=== PATIENT | male | born 1940 | race Caucasian/White ===

== ENCOUNTER 2017-09-18 14:34 | Inpatient (IN) | payer MEDICARE, OTHER ==
[~2017-09-18] VITALS: Ht 175.3 cm; Wt 82.6 kg
--- NOTE | ~2017-09-18 | EC ---
PATIENT:AJIT ELKINS DATE OF SERVICE: 09/18/17 SEX: M MEDICAL RECORD: [id number] DATE OF : 44 LOCATION:D. D.210 AGE OF PATIENT: 76 ADMISSION DATE: 09/18/17 REFERRING PHYSICIAN: INTERPRETING PHYSICIAN: LEXI PARSONS MD ECHOCARDIOGRAM REPORT ECHO CHARGES Date: CLINICAL DIAGNOSIS: ECHOCARDIOGRAPHIC MEASUREMENTS (adult normal given) AC root (d.<3.7cm) cm LV Septum d (<1.2 cm> cm Valve Excursion cm LV Septum (systole) cm Left Atria (s.<4.0cm> cm LVPW d(<1.2cm) cm RV (d.<2.3cm) cm LVPW (sytole) cm LV diastole(<5.6CM) cm MV E-F(>70mm/sec) cm LV systole cm LVOT Diameter cm MV exc.(>10mm) cm Est.ejection fraction (50-75%) % DOPPLER: LVIT cm/sec A cm/sec E cm/sec LA cm/sec RVSP mmHg LVOT cm/sec AOP1/2T m/s Asc. 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 FINDINGS: 1. Left ventricular chamber size is within normal limits. Left ventricular systolic function is normal. Overall ejection fraction estimated at 60%. 2. Left atrium is enlarged at 4.5 cm. Right atrium and right ventricle chamber sizes are within normal limits. 3. Valvular structures have normal structure and motion. ECHOCARDIOGRAM REPORT [id number] AJIT ELKINS 4. Doppler interrogation reveals mild aortic insufficiency, trace mitral regurgitation, no other valvular insufficiency or stenosis. Pulmonary systolic pressure is estimated at 21 mmHg. 5. No evidence of pericardial effusion or left ventricular thrombus. TRANSINT:[id number] Voice Confirmation ID: [id number] DOCUMENT ID: [id number] LEXI PARSONS MD at 1730 CC: [id number] DICTATION DATE: 09/19/17 1318 TELEPHONE COLLECTOR: 09/19/17 1335 ADM IN [facility] [address] [place] [address]
--- NOTE | ~2017-09-18 | OP ---
PATIENT NAME: AJIT ELKINS MEDICAL RECORD: [id number] :44 LOCATION:D.M2 D.2106 ADMISSION DATE:09/18/17 SURGEON: BROOKE VELASQUEZ MD DATE OF OPERATION: 09/19/2017 PROCEDURE: Left frontal lyla holes with subacute subdural hematoma. SURGEON: Brooke Velasquez MD PREOPERATIVE DIAGNOSIS: Left frontal subdural hematoma. POSTOPERATIVE DIAGNOSIS: Left frontal subdural hematoma. DESCRIPTION AND TECHNIQUE: After induction of general endotracheal anesthesia, the patient was placed supine on the operating table. Left frontal area was prepped and draped in the usual sterile manner. A longitudinal scalp incision was carried out on the left superior temporal line. A craniotome was used to create a lyla hole at this location. The dura was opened in cruciate manner with bipolar cautery and #11 blade. There was brisk egress of subacute subdural hematoma fluid from subdural space. This was irrigated with lukewarm saline irrigant solution until it was crystal clear. Next, the galea was reapproximated with interrupted 2-0 Vicryl suture. The skin was closed with hermes. A sterile dressing was applied to the wound. The patient was awakened in good condition and taken to recovery. All counts were reported as correct. Estimated blood loss was minimal. TRANSINT:[id number] Voice Confirmation ID: [id number] DOCUMENT ID: [id number] BROOKE VELASQUEZ MD at 1510 CC: [id number] DICTATION DATE: 09/30/17 1350 DIRECTOR REGULATORY AFFAIRS: 09/30/17 1410 DIS IN 09/24/17 [place] [id number] [place] [id number]
--- NOTE | ~2017-09-18 | HP ---
PATIENT: AJIT ELKINS MEDICAL RECORD: [id number] ACCOUNT: [id number] LOCATION:[address] : [birth year] ADMISSION DATE: 09/18/17 HISTORY AND PHYSICAL EXAMINATION DATE OF ADMISSION: 09/18/2017 CHIEF COMPLAINT: Difficulty forming a sentence with expressive aphasia. HISTORY OF PRESENT ILLNESS: A 76-year-old gentleman who had been in my office on 09/16/2017 complaining of intermittent episodes of difficulty forming words, having difficulty with expressive aphasia. He had not noticed any changes in his extremities. The patient had been set up to have CT scan of the head as well as Dopplers and echocardiogram on an outpatient basis; but today apparently, the patient felt somewhat dizzy, also developed once again some expressive aphasia. It was felt the patient warranted admission. PAST MEDICAL HISTORY: His past history is significant in that he has had coronary artery bypass grafting. He has had hypertension, hyperlipidemia, gastroesophageal reflux, migraine headaches, BPH. He has had a cholecystectomy. FAMILY HISTORY: Father had cerebrovascular accident, in his 30s. Diabetes apparently runs in the family. Daughter has migraine headaches. SOCIAL HISTORY: The patient is a former smoker, stopped many years ago. 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 Educated to the 12th grade. He is . ALLERGIES: AMOXIL WELL SULFA. MEDICATIONS: Include amlodipine 2.5 mg once a day, aspirin 325 mg once a day, atorvastatin 10 mg once a day, Prilosec 20 mg once a day. REVIEW OF SYSTEMS: CONSTITUTIONAL: He denies any headache, seizure, or syncope. Denies change in visual or auditory acuity. PULMONARY: He denies any shortness of breath, cough, congestion, history of TB, asthma, or bronchitis. CARDIOVASCULAR: He has had no chest pain, palpitation, PND, orthopnea. GI: No chronic nausea, vomiting, melena, or hematochezia. : No urgency, frequency, or dysuria. PHYSICAL EXAMINATION: GENERAL: He is accompanied by his . HEENT: The patient has no facial weakness, but does have some evidence of expressive aphasia with slow mentation. NEUROLOGIC: Cranial nerves II-XII are otherwise grossly intact. NECK: Supple. There is no adenopathy. Carotid pulse 2+. No bruits. HEART: Regular rate and rhythm without any murmurs, gallops, or rubs. LUNGS: Clear. ABDOMEN: Soft. Bowel sounds are positive. EXTREMITIES: Upper and lower extremities have good strength. Good range of motion. ASSESSMENT: Expressive aphasia, possible TIAs, history of arteriosclerotic heart disease with bypass surgery, history of cholecystectomy, hypertension, HISTORY AND PHYSICAL [id number] ELKINS,AJIT Zhou hyperlipidemia. PLAN: It was felt the patient should be admitted. We will add Plavix 75 mg once a day. He will have an MRI with and without contrast of the cranium as well as carotid duplex, Dopplers, echocardiogram. Place him on telemetry. Continue to follow. TRANSINT:[id number] Voice Confirmation ID: [id number] DOCUMENT ID: [id number] AJIT PEREZ MD at 0937 CC: [id number] DICTATION DATE: 09/18/171731 SERVICE WRITER: 09/18/17 1903 ADM IN [facility] [address] [place] [address]
[~2017-09-18 14:34] MED LIST: BAYER CHEWABLE81 MG PO; DULCOLAX5 MG PO; LIPITOR10 MG PO; NORVASC2.5 MG PO; PRILOSEC20 MG PO; ZYRTEC10 M1 PO
[2017-09-18] MEDS ORDERED: PLAVIX75 MG PO (15:19)
[2017-09-18] MEDS ORDERED: FISH OIL 1,0001 CA1 PO (15:21)
[2017-09-18] MEDS ORDERED: VITAMIN D5000 UNIT PO (15:21)
[2017-09-18] MEDS ORDERED: MULTI-DAY VITAM1 TAB PO (15:21)
[2017-09-18] MEDS ORDERED: GINKGO BILOBA120 MG PO (15:22)
[2017-09-18] MEDS ORDERED: MILK THISTLE140 MG PO (15:22)
[2017-09-18 15:33] VITALS: BP 158/74; Ht 175.3 cm; Wt 82.6 kg
[2017-09-18 16:24] LABS: BASOPHILS 0.4 % (0-2); EOSINOPHILS 1.4 % (0-7); HEMATOCRIT 42.2 % (42.0-54.0); HEMOGLOBIN 14.4 g/dL (13.5-17.5); IMMATURE GRANULOCYTES 0.1 % (0-5); LYMPHOCYTES 31.4 % (15-50); MCH 31.9 pg (26.0-34.0); MCHC 34.1 g/dL (31.0-37.0); MCV 93.6 fL (80.0-100.0); MEAN PLATELET VOLUME 10.6 fL (7.4-10.4); MONOCYTES 6.4 % (2-11); NEUTROPHILS 60.3 % (40-80); PLATELET COUNT 194 10x3/uL (130-400); RBC 4.51 10x6/uL (4.20-6.10); WBC 8.5 10x3/uL (4.8-10.8)
[2017-09-18 16:39] LABS: ALBUMIN 3.7 g/dL (3.4-5.0); ALKALINE PHOSPHATASE 66 U/L (46-116); ALT (SGPT) 22 U/L (10-68); BILIRUBIN - TOTAL 0.53 mg/dL (0.2-1.3); CALC OSMOLALITY 275 mosm/kg (275-300); CALCIUM 8.7 mg/dL (8.5-10.1); CARBON DIOXIDE 25.9 mmol/L (21.0-32.0); CHLORIDE - SERUM 106 mmol/L (98-107); GLUCOSE 88 mg/dL (74-106); POTASSIUM - SERUM 4.1 mmol/L (3.5-5.1); PROTEIN - SERUM 6.9 g/dL (6.4-8.2); SODIUM 139 mmol/L (136-145); UREA NITROGEN 11 mg/dL (7-18); eGFR NON AFRICAN AMERICAN 78 mL/min (90-120)
[2017-09-18 16:51] VITALS: BP 158/74
[2017-09-18 17:27] LABS: ERYTHROCYTE SEDIMENTATION RATE 5 mm/hr (0-20)
[2017-09-18 20:33] VITALS: BP 152/72
[2017-09-19] VITALS (7 sets, daily range): BP systolic 102–146; BP diastolic 54–92
[2017-09-19 05:35] LABS: BASOPHILS 0.1 % (0-2); EOSINOPHILS 0.1 % (0-7); HEMATOCRIT 45.9 % (42.0-54.0); HEMOGLOBIN 15.7 g/dL (13.5-17.5); IMMATURE GRANULOCYTES 0.1 % (0-5); LYMPHOCYTES 15.3 % (15-50); MCH 31.7 pg (26.0-34.0); MCHC 34.2 g/dL (31.0-37.0); MCV 92.7 fL (80.0-100.0); MEAN PLATELET VOLUME 10.7 fL (7.4-10.4); MONOCYTES 0.8 % (2-11); NEUTROPHILS 83.6 % (40-80); PLATELET COUNT 223 10x3/uL (130-400); RBC 4.95 10x6/uL (4.20-6.10); RDW 13.1 % (11.5-14.5); WBC 7.3 10x3/uL (4.8-10.8)
[2017-09-19 07:00] LABS: ANION GAP 16.4 mmol/L (8-16); CARBON DIOXIDE 22.2 mmol/L (21.0-32.0); CREATININE - SERUM 1.1 mg/dL (0.6-1.3); POTASSIUM - SERUM 4.6 mmol/L (3.5-5.1)
[2017-09-20 01:00] VITALS: BP 123/60
[2017-09-20 05:09] VITALS: BP 131/66
[2017-09-20 05:38] LABS: APTT 31.9 SECONDS (22.8-39.4); INR 1.21 (0.85-1.17); PROTIME 14.9 SECONDS (11.6-15.0)
[2017-09-20 05:40] LABS: HEMATOCRIT 43.8 % (42.0-54.0); MCH 31.8 pg (26.0-34.0); MCHC 34.2 g/dL (31.0-37.0); MCV 92.8 fL (80.0-100.0); MEAN PLATELET VOLUME 10.9 fL (7.4-10.4); PLATELET COUNT 242 10x3/uL (130-400); RBC 4.72 10x6/uL (4.20-6.10); RDW 13.2 % (11.5-14.5); WBC 24.3 10x3/uL (4.8-10.8)
[2017-09-20 05:41] LABS: ANION GAP 14.8 mmol/L (8-16); CALCIUM 9.1 mg/dL (8.5-10.1); CARBON DIOXIDE 23.6 mmol/L (21.0-32.0); CREATININE - SERUM 1.1 mg/dL (0.6-1.3); LYMPHOCYTES 6 % (15-50); MONOCYTES 3 % (2-11); NEUTROPHILS 86 % (40-80); PLATELET ESTIMATE NORMAL; POTASSIUM - SERUM 4.4 mmol/L (3.5-5.1)
[2017-09-20 08:29] VITALS: BP 162/69
[2017-09-20 08:45] LABS: BASOPHILS 0 % (0-2); EOSINOPHILS 0 % (0-7); HEMATOCRIT 42.9 % (42.0-54.0); HEMOGLOBIN 14.9 g/dL (13.5-17.5); IMMATURE GRANULOCYTES 0.3 % (0-5); LYMPHOCYTES 5.5 % (15-50); MCH 32.3 pg (26.0-34.0); MCHC 34.7 g/dL (31.0-37.0); MCV 93.1 fL (80.0-100.0); MEAN PLATELET VOLUME 10.5 fL (7.4-10.4); MONOCYTES 2.6 % (2-11); NEUTROPHILS 91.6 % (40-80); PLATELET COUNT 217 10x3/uL (130-400); RBC 4.61 10x6/uL (4.20-6.10); RDW 13.3 % (11.5-14.5); WBC 23.6 10x3/uL (4.8-10.8)
[2017-09-20 11:54] VITALS: BP 145/55
[2017-09-20 15:44] VITALS: BP 155/73
[2017-09-20 20:00] VITALS: BP 160/73
[2017-09-21 01:00] VITALS: BP 166/82
[2017-09-21 04:00] VITALS: BP 162/77
[2017-09-21 05:34] LABS: BASOPHILS 0.1 % (0-2); EOSINOPHILS 0 % (0-7); HEMATOCRIT 42.2 % (42.0-54.0); HEMOGLOBIN 14.5 g/dL (13.5-17.5); IMMATURE GRANULOCYTES 0.2 % (0-5); LYMPHOCYTES 17.7 % (15-50); MCH 31.9 pg (26.0-34.0); MCHC 34.4 g/dL (31.0-37.0); MEAN PLATELET VOLUME 10.2 fL (7.4-10.4); PLATELET COUNT 202 10x3/uL (130-400); RBC 4.54 10x6/uL (4.20-6.10); RDW 13.4 % (11.5-14.5); WBC 18.7 10x3/uL (4.8-10.8)
[2017-09-21 06:29] LABS: CALC OSMOLALITY 286 mosm/kg (275-300); CALCIUM 8.4 mg/dL (8.5-10.1); CHLORIDE - SERUM 109 mmol/L (98-107); GLUCOSE 103 mg/dL (74-106); SODIUM 143 mmol/L (136-145); UREA NITROGEN 18 mg/dL (7-18); eGFR NON AFRICAN AMERICAN 78 mL/min (90-120)
[2017-09-21 06:32] LABS: POTASSIUM - SERUM 3.6 mmol/L (3.5-5.1)
[2017-09-21 07:54] VITALS: BP 177/76
[2017-09-21 13:46] VITALS: BP 148/59
[2017-09-21 15:29] VITALS: BP 166/82
[2017-09-21 20:00] VITALS: BP 177/73
[2017-09-22 01:00] VITALS: BP 153/70
[2017-09-22 05:00] VITALS: BP 152/67
[2017-09-22 05:08] LABS: BASOPHILS 0.1 % (0-2); EOSINOPHILS 0.4 % (0-7); HEMATOCRIT 42.8 % (42.0-54.0); HEMOGLOBIN 14.6 g/dL (13.5-17.5); IMMATURE GRANULOCYTES 0.3 % (0-5); LYMPHOCYTES 23.7 % (15-50); MCH 31.7 pg (26.0-34.0); MCHC 34.1 g/dL (31.0-37.0); MEAN PLATELET VOLUME 10.6 fL (7.4-10.4); MONOCYTES 8.4 % (2-11); NEUTROPHILS 67.1 % (40-80); PLATELET COUNT 194 10x3/uL (130-400); RDW 13.3 % (11.5-14.5); WBC 11.7 10x3/uL (4.8-10.8)
[2017-09-22 05:52] LABS: CALC OSMOLALITY 282 mosm/kg (275-300); CALCIUM 8.4 mg/dL (8.5-10.1); CARBON DIOXIDE 25.2 mmol/L (21.0-32.0); CHLORIDE - SERUM 107 mmol/L (98-107); CREATININE - SERUM 0.9 mg/dL (0.6-1.3); GLUCOSE 103 mg/dL (74-106); POTASSIUM - SERUM 3.8 mmol/L (3.5-5.1); SODIUM 142 mmol/L (136-145); eGFR NON AFRICAN AMERICAN 88 mL/min (90-120)
[2017-09-22 05:54] LABS: UREA NITROGEN 13 mg/dL (7-18)
[2017-09-22 07:00] VITALS: BP 166/75
[2017-09-22 12:00] VITALS: BP 164/69
[2017-09-22 17:14] VITALS: BP 163/73
[2017-09-22 20:36] VITALS: BP 143/59
[2017-09-23] VITALS: BP 167/74
[2017-09-23 05:20] VITALS: BP 172/67
[2017-09-23 09:25] VITALS: BP 136/64
[2017-09-23 12:22] VITALS: BP 142/70
[2017-09-23 16:46] VITALS: BP 167/76
[2017-09-23 21:27] VITALS: BP 164/77
[2017-09-24 01:02] VITALS: BP 171/74
[2017-09-24 04:41] LABS: BASOPHILS 0.1 % (0-2); HEMATOCRIT 42.6 % (42.0-54.0); HEMOGLOBIN 14.6 g/dL (13.5-17.5); IMMATURE GRANULOCYTES 0.5 % (0-5); LYMPHOCYTES 19.6 % (15-50); MCH 31.4 pg (26.0-34.0); MCHC 34.3 g/dL (31.0-37.0); MCV 91.6 fL (80.0-100.0); MEAN PLATELET VOLUME 10.7 fL (7.4-10.4); MONOCYTES 7.6 % (2-11); NEUTROPHILS 70.2 % (40-80); PLATELET COUNT 196 10x3/uL (130-400); RBC 4.65 10x6/uL (4.20-6.10); RDW 12.9 % (11.5-14.5); WBC 11.7 10x3/uL (4.8-10.8)
[2017-09-24 04:51] LABS: CALC OSMOLALITY 284 mosm/kg (275-300); CALCIUM 8.3 mg/dL (8.5-10.1); CARBON DIOXIDE 25.3 mmol/L (21.0-32.0); CHLORIDE - SERUM 108 mmol/L (98-107); CREATININE - SERUM 0.9 mg/dL (0.6-1.3); GLUCOSE 116 mg/dL (74-106); POTASSIUM - SERUM 3.7 mmol/L (3.5-5.1); SODIUM 142 mmol/L (136-145); UREA NITROGEN 14 mg/dL (7-18); eGFR NON AFRICAN AMERICAN 88 mL/min (90-120)
[2017-09-24 05:37] VITALS: BP 158/71
[2017-09-24 09:15] VITALS: BP 156/80
[2017-09-24] MEDS ORDERED: TRAZODONE HCL50 MG PO (14:02)
[2017-09-24 14:29] VITALS: BP 146/76
== END 2017-09-24 14:51 | disposition home or self-care (01) | DRG 25 ==
LOC: D.M2 14:34
PROVIDERS: Family Medicine; Neurological Surgery
PROC: 00970ZZ Drainage of Cerebral Hemisphere, Open Approach (ICD-10-PCS; principal; 2017-09-19 13:00)
DX: S06.5X9A Traumatic subdural hemorrhage with loss of consciousness of unspecified duration, initial encounter (principal); G93.5 Compression of brain; X58.XXXA Exposure to other specified factors, initial encounter; I25.10 Atherosclerotic heart disease of native coronary artery without angina pectoris; Z95.1 Presence of aortocoronary bypass graft; I10 Essential (primary) hypertension; E78.5 Hyperlipidemia, unspecified; K21.9 Gastro-esophageal reflux disease without esophagitis; N40.0 Benign prostatic hyperplasia without lower urinary tract symptoms